=== PATIENT | male | born 1955 | race Caucasian/White ===

== ENCOUNTER 2019-05-05 14:22 | Inpatient (IN) | payer BC ==
[~2019-05-05] VITALS: Ht 175.3 cm; Wt 91.3 kg
[2019-05-05] VITALS (137 sets, daily range): BP systolic 99–131; BP diastolic 61–81; PULSE 71–95; TEMP 98.6–98.7; O2SAT 94–99
[2019-05-06] VITALS (385 sets, daily range): BP systolic 97–123; BP diastolic 65–77; PULSE 66–77; TEMP 98–98.6; O2SAT 78–100
[2019-05-06] MEDS ORDERED: CRESTOR20 MG PO (00:34)
[2019-05-06] MEDS ORDERED: PLAVIX 75MG TAB75 MG PO (00:34)
[2019-05-06] MEDS ORDERED: CLARITIN 1010 MG/TAB PO (00:35)
[2019-05-06] MEDS ORDERED: TOPROL XL 50MG50 MG PO (00:35)
[2019-05-06 06:42] LABS: CALCIUM 8.7 mg/dL (8.4-10.2); CREATININE, serum 0.93 (0.66-1.25); POTASSIUM 3.8 mmol/L (3.4-5.0)
[2019-05-06 07:11] LABS: BASO # 0.1 (0.0-0.2); BASO % 0.4 % (0.0-2.0); EOS # 0.1 (0.0-0.7); EOS % 0.6 % (0-4.0); GRAN # 8.9 (1.4-6.5); GRAN % 76.2 % (42.2-75.2); HEMATOCRIT 42.7 % (42.0-52.0); HEMOGLOBIN 14.4 g/dl (13.5-18.0); LYMPH # 1.9 (1.2-3.4); LYMPH % 16.1 % (20.0-51.0); MEAN CELL VOLUME 92 fl (80.0-100.0); MEAN CORPUSCULAR HEMOGLOBIN 31 pg (27.0-31.0); MEAN CORPUSCULAR HGB CONC 34 g/dl (33.0-37.0); MEAN PLATELET VOLUME 10.2 fl (7.4-10.4); MONO # 0.7 (0.1-0.6); MONO % 6.3 % (1.7-9.3); PLATELET COUNT 109 K/mm3 (130-400); RED BLOOD COUNT 4.65 M/mm3 (4.20-5.60)
[2019-05-06] MEDS ORDERED: BRILINTA90 MG PO (09:30)
[2019-05-06] MEDS ORDERED: CRESTOR40 MG PO (09:30)
[2019-05-06] MEDS ORDERED: ASPIRIN E.C. 8181 MG PO (09:31)
== END 2019-05-06 12:30 | disposition home or self-care (01) | DRG 247 ==
LOC: SURG 14:22 → MEDICAL 15:29 → ICU 18:23
PROVIDERS: ADMIT Internal Medicine Cardiovascular Disease
PROC: 027136Z Dilation of Coronary Artery, Two Arteries with Three Drug-eluting Intraluminal Devices, Percutaneous Approach (ICD-10-PCS; principal; 2019-05-05)
PROC: 4A023N7 Measurement of Cardiac Sampling and Pressure, Left Heart, Percutaneous Approach (ICD-10-PCS; 2019-05-05)
PROC: B2111ZZ Fluoroscopy of Multiple Coronary Arteries using Low Osmolar Contrast (ICD-10-PCS; 2019-05-05)
DX: I21.4 Non-ST elevation (NSTEMI) myocardial infarction (principal); I25.10 Atherosclerotic heart disease of native coronary artery without angina pectoris; E78.5 Hyperlipidemia, unspecified; I10 Essential (primary) hypertension; Z87.891 Personal history of nicotine dependence
CPT/HCPCS: 99222-AI; 99239; C9600; J1644; J2250; J3010

== ENCOUNTER → 2022-06-19 | Outpatient (CLI) | payer MEDICARE, OTHER ==
[~2022-06-19] MED LIST: ASPIRIN E.C. 8181 MG PO; BRILINTA90 MG PO; CLARITIN 1010 MG/TAB PO; CRESTOR20 MG PO; CRESTOR40 MG PO; OCUVITE1 TA1 PO; PLAVIX 75MG TAB75 MG PO; PREDNISONE20 MG PO; PROTONIX 40MG T40 MG PO; RANEXA 500MG T500 MG PO; TOPROL XL 50MG50 MG PO
== END ==
LOC: COL.RAD 10:04
DX: R16.1 Splenomegaly, not elsewhere classified (principal); D69.6 Thrombocytopenia, unspecified

== ENCOUNTER → 2023-09-25 | Outpatient (CLI) | payer OTHER ==
[~2023-09-25] MED LIST changes: +Iohexol 300 - 100 ML VIAL IV ONE; +NS 100 ML IV SCH
== END ==
LOC: COL.RAD 09:43
DX: K80.20 Calculus of gallbladder without cholecystitis without obstruction (principal); N32.89 Other specified disorders of bladder; R91.8 Other nonspecific abnormal finding of lung field; C91.10 Chronic lymphocytic leukemia of B-cell type not having achieved remission
CPT/HCPCS: Q9967